=== PATIENT | female | born 1990 | race Caucasian/White ===

== ENCOUNTER 2021-06-29 19:09 | Emergency (ER) | payer OTHER ==
[~2021-06-29] VITALS: Ht 162.6 cm; Wt 59.0 kg
[2021-06-29] MEDS ORDERED: diphenhydrAMINE 50MG/ML VIAL (J1200) IV STA (20:23)
[2021-06-29] MEDS ORDERED: KETOROLAC 30 MG/ML 1ML VIAL IV ONE (20:25)
[2021-06-29] MEDS ORDERED: NS 1,000 ML IV ONE (20:25)
[2021-06-29] MEDS ORDERED: METOCLOPRAMIDE INJ 10MG/2ML VIAL (J2765 PER 1) IV ONE (20:25)
--- OUTSIDE RECORDS SUMMARY | 2021-06-29 20:58 | CCD ---
Author Author [facility] Organization [facility] Address Unknown Phone Unavailable Care Team Providers Care Special Agent [employer] Name Role Phone Ramon Edmondson PA-C Unavailable Unavailable Re-disclosure Warning The records that you are about to access may contain information from federally-assisted alcohol or drug abuse programs. If such information is present, then the following federally mandated warning applies: This information has been disclosed to you from records protected by federal confidentiality rules (42 CFR part 2). The federal rules prohibit you from making any further disclosure of this information unless further disclosure is expressly permitted by the written consent of the person to whom it pertains or as otherwise permitted by 42 CFR part 2. A general authorization for the release of medical or other information is NOT sufficient for this purpose. The Federal rules restrict any use of the information to criminally investigate or prosecute any alcohol or drug abuse patient.The records that you are about to access may contain highly sensitive health information, the redisclosure of which is protected by Article 27-F of the [facility] Public Health law. If you continue you may have access to information: Regarding HIV / AIDS; Provided by facilities licensed or operated by the [facility] Office of Mental Health; or Provided by the [facility] Office for People With Developmental Disabilities. If such information is present, then the following [facility] mandated warning applies: This information has been disclosed to you from confidential records which are protected by state law. State law prohibits you from making any further disclosure of this information without the specific written consent of the person to whom it pertains, or as otherwise permitted by law. Any unauthorized further disclosure in violation of state law may result in a fine or penitentiary sentence or both. A general authorization for the release of medical or other information is NOT sufficient authorization for further disc losure. Allergies and Adverse Reactions Type Description Substance Reaction Status Data Source(s ) Drug allergy No Known Allergies No Known Allergies [facility] Encounters Encounter Providers Location Date Indications Data Source(s ) Emergency Attender: Ramon FARAHCAdmitter: Ramon Edmondson PA-C 06/22/2020 10:55:36 AM EDT - 06/22/2020 01:02:00 PM EDT [facility] Patient discharged. Emergency 06/21/2020 01:28:00 PM EDT - 020 02:22:00 PM EDT [facility] Patient discharged. Medications No Information Insurance Providers Payer name Policy type / Coverage type Policy ID Covered libertarian ID Covered libertarian's relationship to chavez Policy Chavez Plan Information SELF 00 Self 00 COMM [id number] Self [id number] COMM UNKNOWN Self UNKNOWN SELF 00 Self 00 YAS [id number] SP [id number] Problems, Conditions, and Diagnoses No Information Surgeries/Procedures No Information Results ID Date Data Source [id number] 06/22/2020 01:23:00 PM EDT [facility] Name Value Range Interpretation Code Description Data Ellie rce(s) Supporting Document(s) UA Color Yellow NO [facility] UA Appear Clear NO [facility] UA pH 5.0-8.0 NO [facility] UA Spec Grav 1.015 1.005-1.030 [facility]A Glucose Negative NO [facility] UA Ketones Negative NO [facility] UA Urobilinogen 0.2-1.0 NO [facility] UA Bili Negative NO [facility] UA Blood Negative [facility] UA Protein Negative NO [facility] UA Nitrite Negative NO [facility] UA Leuk Est Negative NO [facility] ID Date Data Source [id number] 06/22/2020 01:06:00 PM EDT [facility] Patient Name: KATHERINE ZHAO BMRN: [id number] UltrasoundACCESSION EXAM DATE/TIME PROCEDURE ORDERING PROVIDER [id number] 06/22/2020 12:52 US OB < 14W Single Edmondson PA-C, Auth (Verified) EDT TA TV JonathanReason For Exam(US OB < 14W Single TA TV) Confirm ViabilityReportPROCEDURE: US Uterus First Trimester Less Than 14 Weeks With Real Time With Image DocumentationPROCEDURE: US Uterus With Real Time With Image Documentation TransvaginalCLINICAL HISTORY: Early OB SpottingSCRIPT INFORMATION: Confirm viabilityCOMPARISON: None.TECHNIQUE:Obstetrical ultrasound was performed with transabdominal and transvaginal approach with real time evaluation with image documentation.FINDINGS:UTERUS:The uterus measures 8.3 x 5.1 x 3.8 cm. The uterus contains a normal shape single gestational sac.The mean sac diameter is 0.98 cm. No pole is seen. A yolk sac is identified. The estimated gestational age is 5 weeks 5 days. The estimated date of confinement is 02/18/2020.RIGHT OVARY:The right ovary measures 4 x 2.7 x 2.8 cm.It has a normal echotexture.LEFT OVARY:The left ovary measures 2.7 x 2.8 x 2.4 cm.It has a normal echotexture.FLUID:There is no free pelvic fluid.IMPRESSION:There is an intrauterine gestational sac. There is no pole within the gestational sac. These findings may represent a very early viable although can represent a blighted ovum as well. Correlation with the patient's LMP, and serum beta hCG levels and serial followup ultrasonography is recommended. Note that an ectopic is not excluded.Thank you for allowing [facility] to participate in the evaluation of this patient. Final Dictated: Elton Manrique DO 06/22/20 13:01Signed: Elton Manrique DO 06/22/20 13:05Transcribed by: ESK Name Value Range Interpretation Code Description Data Ellie rce(s) Supporting Document(s) ID Date Data Source [id number] 06/22/2020 12:54:00 PM EDT [facility] Name Value Range Interpretation Code Description Data Ellie rce(s) Supporting Document(s) Beta hCG Quant 69863 mIU/mL <=5 [facility] <5.......Negative5-25.....Indeterminate repeat testing is suggested in 2 4 days ifclinically indicated.>25......PositiveApproximate gestational age bHcg range (mIU/ml) 0 1 week..............................5 50 1 2 weeks............................50 500 2 3 weeks...........................100 5,000 3 4 weeks...........................500 10,000 4 5 weeks.........................1,000 50,000 5 6 weeks........................10,000 100,000 6 8 weeks............. ...........15,000 200,000 2 3 months.......................10,000 100,000 2nd trimester.......................3,000 50,000 3rd trimester.......................1,000 50,000 ID Date Data Source [id number] 06/22/2020 12:39:00 PM EDT [facility] Name Value Range Interpretation Code Description Data Ellie rce(s) Supporting Document(s) ABSC Gel NO [facility] ID Date Data Source [id number] 06/22/2020 12:28:00 PM EDT [facility] Name Value Range Interpretation Code Description Data Ellie rce(s) Supporting Document(s) ABO/Rh UN [facility] ID Date Data Source [id number] 06/22/2020 12:25:00 PM EDT [facility] Added by Discern Rule [id number] Name Value Range Interpretation Code Description Data Ellie rce(s) Supporting Document(s) eGFR-AA >90 mL/min/1.73m2 >=60 [facility] The MDRD 4-Variable IDMS traceable Equat ion for non- individuals is used to calculate the estimated glomerular filtration rate (GFR). To estimate the GFR for Americans, multiply the provided GFR result by 1.16. The MDRD 4-Variable IDMS traceable Equation is validated in individuals 18 years of age or older. It is less accurate in patients with extremes of muscle mass, restriction of dietary protein, ingestion of creatine, extra-renal metabolism of creatinine, or treatment with medications that affect renal tubular creatinine secretion.GFR Categories in Chronic Kidney Disease (CKD)GFR Category: GFR (mL/min/1.73 m2): Interpretation: G1 90 or greater Normal or high*G2 60-89 Mild decrease*G3a 45-59 Mild to moderate [id number] 30-44 Moderate to severe decreaseG4 15-29 Severe decreaseG5 14 or less Kidney failure eGFR-MADELEINE >90 mL/min/1.73m2 >=60 [facility] The MDRD 4-Variable IDMS traceable Equat ion for non- individuals is used to calculate the estimated glomerular filtration rate (GFR). To estimate the GFR for Americans, multiply the provided GFR result by 1.16. The MDRD 4-Variable IDMS traceable Equation is validated in individuals 18 years of age or older. It is less accurate in patients with extremes of muscle mass, restriction of dietary protein, ingestion of creatine, extra-renal metabolism of creatinine, or treatment with medications that affect renal tubular creatinine secretion.GFR Categories in Chronic Kidney Disease (CKD)GFR Category: GFR (mL/min/1.73 m2): Interpretation: G1 90 or greater Normal or high*G2 60-89 Mild decrease*G3a 45-59 Mild to moderate [id number] 30-44 Moderate to severe decreaseG4 15-29 Severe decreaseG5 14 or less Kidney failure ID Date Data Source [id number] 06/22/2020 12:25:00 PM EDT [facility] Name Value Range Interpretation Code Description Data Ellie rce(s) Supporting Document(s) Glucose Lvl 100 mg/dL 65-99 [facility] BUN 10.0 mg/dL 7.0-21.0 [facility] Creatinine 0.70 mg/dL 0.40-1.00 [facility] BUN/Creat Ratio 14.3 ratio 7.0-29.0 [facility] Sodium Lvl 137 mmol/L 136-146 [facility] Potassium Lvl 4.1 mmol/L 3.5-5.1 [facility] Chloride 105 mmol/L 98-109 [facility] CO2 23 mmol/L 17-33 [facility] AGAP 9 5-15 [facility] Calcium Lvl 9.2 mg/dL 8.3-10.2 [facility] Total Protein 7.1 gm/dL 6.0-8.3 [facility] Albumin Lvl 4.1 gm/dL 3.7-5.3 [facility] Glob 3.0 gm/dL 2.0-4.5 [facility] A/G Ratio 1.4 ratio 1.0-2.2 [facility] Bili Total 0.7 mg/dL 0.4-1.1 [facility] Alk Phos 57 IU/L 30-125 NO [facility] AST 14 IU/L 10-35 NO [facility] ALT 16 IU/L 7-35 [facility] ID Date Data Source [id number] 06/22/2020 12:01:00 PM EDT [facility] Name Value Range Interpretation Code Description Data Ellie rce(s) Supporting Document(s) Neut Auto 74.8 % 40.0-70.0 [facility] Lymph Auto 17.6 % 22.0-44.0 LO [facility] [place] Auto 5.9 % 4.0-11.0 [facility] Eos Auto 1.0 % 0.0-8.0 [facility] Baso Auto 0.7 % 0.0-3.0 [facility] Neut Absolute 5.4 x10(3)/mcL 1.8-7.7 [facility] Lymph Absolute 1.3 x10(3)/mcL 1.0-4.8 [facility] [place] Absolute 0.4 x10(3)/mcL 0.2-1.2 [facility] Eos Absolute 0.1 x10(3)/mcL 0.0-0.9 [facility] Baso Absolute 0.1 x10(3)/mcL 0.0-0.3 [facility] ID Date Data Source [id number] 06/22/2020 12:01:00 PM EDT [facility] Name Value Range Interpretation Code Description Data Ellie rce(s) Supporting Document(s) WBC 7.2 x10(3)/mcL 4.5-11.0 NO [facility] RBC 4.35 x10(6)/mcL 4.00-5.20 [facility] Hgb 12.5 gm/dL 12.0-16.0 [facility] Hct 37.4 % 36.0-46.0 [facility] MCV 86 fL 80-100 [facility] MCH 28.8 pg 26.0-34.0 [facility] MCHC 33.5 gm/dL 31.0-37.0 [facility] RDW 12.7 % 11.5-14.5 [facility] Platelet 233 x10(3)/mcL 150-350 [facility] MPV 8.9 fL 7.4-10.4 [facility] ID Date Data Source [id number] 06/22/2020 01:03:00 PM EDT [facility] Patient: KATHERINE ZHAO Age: 29 years Sex: Female : 1990 Associated Diagnoses: Vaginal bleeding Author: Ramon Edmondson PA-C Basic Information Time seen: 06/22/2020, 11:23. Additional information: Chief Complaint from Nursing Triage Note : Chief Complaint 06/22/2020 11:09 EDT Chief Complaint was here yesterday left without being seen. Did a test that was pos. on Thursday and is having some spotting and wants to be check our. 06/21/2020 14:10 EDT Chief Complaint pt ambulatory to ER wearing mask c/o cramping, lighthead, and reports (+) test at home 3 days ago, unkonwn how many weeks gestation. no vaginal bleeding. . History of Present Illness The patient presents with vaginal bleeding. The onset was 1 days ago. The course/duration of symptoms is constant. Character of pain: none. Bleeding: mild. Status : 5, Para: 2 unknown. The exacerbating factor is none. The relieving factor is none. Risk factors consist of none. Prior episodes: none. Therapy today: none. Associated symptoms: nausea. Review of Systems Constitutional symptoms: No fever, Skin symptoms: No rash, Eye symptoms: Negative except as documented in HPI. ENMT symptoms: Negative except as documented in HPI. Respiratory symptoms: No shortness of breath, no cough. Cardiovascular symptoms: No chest pain, Gastrointestinal symptoms: Nausea, no abdominal pain, no vomiting, no diarrhea. Genitourinary symptoms: Vaginal bleeding, No dysuria, Musculoskeletal symptoms: No back pain, Neurologic symptoms: Dizziness, No headache, Psychiatric symptoms: Negative except as documented in HPI. Allergy/immunologic symptoms: Negative except as documented in HPI. Additional review of systems information: All systems reviewed and are negative. Health Status Allergies: Allergic Reactions (Selected)No Known Allergies. Medications: (Selected) Inpatient MedicationsOrderedNS Bolus: 1,000 mL, IV Bolus, OnceReglan: 10 mg, 2 mL, IV Push, Once. Past Medical/ Family/ Social History Medical history: No active or resolved past medical history items have been selected or recorded.. Surgical history: No active procedure history items have been selected or recorded.. Family history: No family history items have been selected or recorded.. Social history: Denies hx of ETOH and drug abuse but does smoke marijuana and cigarrettes socially. Problem list: No qualifying data available. Physical Examination Vital Signs Vital Signs 06/22/2020 11:09 EDT Temperature Temporal 97.4 DegF LOW Systolic Blood Pressure 99 mmHg Diastolic Blood Pressure 67 mmHg Heart Rate Monitored 75 bpm Respiratory Rate 18 br/min 06/21/2020 14:10 EDT Temperature Temporal 97.4 DegF LOW Systolic Blood Pressure 103 mmHg Diastolic Blood Pressure 76 mmHg Mean Arterial Pressure, Cuff 85 mmHg Heart Rate Monitored 74 bpm . Measurements 06/22/2020 11:09 EDT Clinical Weight 57.72 kg Body Mass Index Measured 21.72 kg/m2 Body Mass Index Measured 21.72 kg/m2 Height/Length Measured 163 cm 06/21/2020 14:10 EDT Clinical Weight 57.7 kg Body Mass Index Measured 21.72 kg/m2 Body Mass Index Measured 21.72 kg/m2 Height/Length Measured 163 cm . Basic Oxygen Information 06/22/2020 11:09 EDT Oxygen Therapy Room air SpO2 97 % 06/21/2020 14:10 EDT Oxygen Therapy Room air SpO2 97 % . General: Alert, general appearrance in no acute distress, anxious, Not ill- appearing, Skin: Warm, dry, pink, intact, no pallor, no rash. Head: Normocephalic, atraumatic. Neck: Supple. Eye: Normal conjunctiva. Cardiovascular: Regular rate and rhythm, No murmur, Normal peripheral perfusion, No edema. Respiratory: Lungs are clear to auscultation, respirations are non-labored, breath sounds are equal, Symmetrical chest wall expansion. Chest wall: No tenderness, No deformity. Back: No costovertebral angle tenderness, Gastrointestinal: Soft, Nontender, Non distended, Normal bowel sounds, No organomegaly, Guarding: Negative, Rebound: Negative. Neurological: Alert and oriented to person, place, time, and situation, No focal neurological deficit observed. Lymphatics: No lymphadenopathy. Psychi atric: Cooperative, appropriate mood and affect. Medical Decision Making Differential Diagnosis: Vaginal bleeding, pelvic pain, ectopic , threatened , spontaneous , incomplete , urinary tract infection, ovarian cyst, discomfort of . Orders Launch Order Profile (Selected) Inpatient OrdersOrderedNS Bolus: 1,000 mL, IV Bolus, OnceReglan: 10 mg, 2 mL, IV Push, OnceSaline Lock: Ordered (Dispatched)ABO/Rh: Antibody Screen Gel: Beta hCG Quantitative: CBC w/ Auto Diff: CMP: Urinalysis (UA) with Reflex Culture: Ordered (Exam Ordered)US OB < 14W Single TA TV: . Results review: Lab results : Lab View 06/22/2020 11:44 EDT WBC 7.2 x10(3)/mcL RBC 4.35 x10(6)/mcL Hgb 12.5 gm/dL Hct 37.4 % MCV 86 fL MCH 28.8 pg MCHC 33.5 gm/dL RDW 12.7 % Platelet 233 x10(3)/mcL MPV 8.9 fL Neut Auto 74.8 % HI Lymph Auto 17.6 % LOW [place] Auto 5.9 % Eos Auto 1.0 % Baso Auto 0.7 % Neut Absolute 5.4 x10(3)/mcL Lymph Absolute 1.3 x10(3)/mcL [place] Absolute 0.4 x10(3)/mcL Eos Absolute 0.1 x10(3)/mcL Baso Absolute 0.1 x10(3)/mcL Glucose Lvl 100 mg/dL HI BUN 10.0 mg/dL Creatinine 0.70 mg/dL eGFR-AA >90 mL/min/1.73m2 eGFR-MADELEINE >90 mL/min/1.73m2 BUN/Creat Ratio 14.3 ratio Sodium Lvl 137 mmol/L Potassium Lvl 4.1 mmol/L Chloride 105 mmol/L CO2 23 mmol/L AGAP 9 Calcium Lvl 9.2 mg/dL ALT 16 IU/L AST 14 IU/L Alk Phos 57 IU/L Total Protein 7.1 gm/dL Albumin Lvl 4.1 gm/dL Glob 3.0 gm/dL A/G Ratio 1.4 ratio Bili Total 0.7 mg/dL Beta hCG Quant 18,862 mIU/mL HI ABO/Rh B POS ABSC Gel Negative ABSC 06/22/2020 11:09 E DT LMP Date 05/23/2020 06/21/2020 14:10 EDT LMP Date 05/10/2020 . Notes: This is a 29 year old female with no significant medical hx who presents to the ED with vaginal bleeding described as spotting since last night. Pt reports having positive home preg test approx 4-5 days ago. Pt is A2 and reports the bleeding has resolved. She is currently moving up from [facility] to take care of her sick mother and does not have [employer] in the area. Reexamination/ Reevaluation Vital signs Basic Oxygen Information 06/22/2020 11:09 EDT Oxygen Therapy Room air SpO2 97 % 06/21/2020 14:10 EDT Oxygen Therapy Room air SpO2 97 % Impression and Plan Diagnosis Vaginal bleeding - [id number] N93.9, Discharge Plan Condition: Stable. Disposition: Left against medical advice, Pt wants to leave due to family emergency and will not wait for sono result. At time of AMA pt displays full functional capacity and denies SI/HI. Pt left despite knowing risks which include and loss of . Pt welcomed to return at any ti me. Patient was given the following educational materials: Adapting to : First Trimester, Understanding Uterine Bleeding. Follow up with: Anni Guzman In 3 days 06/25/2020; BRUCE Tesfaye In 3 days 06/25/2020; PCPONLY NONE In 3 days. Counseled: Patient, Regarding diagnosis, Regarding diagnostic results, Regarding treatment plan, Regarding prescription, Patient indicated understanding of instructions.06/22/2020 11:49:47 Comment by: Fidelia Real confirmed email, phone. no pcp. Fidelia Matute MElectronically signed by Ramon Edmondson PA-C 06/22/2020 13:03 EDT Name Value Range Interpretation Code Description Data Ellie rce(s) Supporting Document(s) Procedure Social History Code Duration Value Status Description Data Source(s ) Smoking 06/22/2020 12:14:57 PM EDT Never smoked tobacco (findi ng) completed Never smoked tobacco (finding) [facility] Vital Signs ID Date Data Source UNK Name Value Range Interpretation Code Description Data Source(s) Body temperature - Temporal artery 98.2 [degF] 97.9-100.6 De gF Normal (applies to non-numeric results) 98.2 [degF] [facility] Heart rate 89 bpm 60-100 bpm Normal (applies to non-numeric resul ts) 89 bpm [facility] Respiratory rate 16 br/min 14-20 br/min Normal (applies to non-n umeric results) 16 br/min [facility] Systolic blood pressure 112 mm[Hg] 90-130 mmHg Normal ( applies to non-numeric results) 112 mm[Hg] [facility] Diastolic blood pressure 71 mm[Hg] 60-90 mmHg Normal (applies to non-numeric results) 71 mm[Hg] [facility] Oxygen saturation in Blood Postductal by Pulse oximetry 98 % 94-100 % Normal (applies to non-numeric results) 98 % [facility] Oxygen therapy [Minimum Data Set] [facility] Body temperature - Temporal artery 97.4 [degF] 97.9-100.6 DegF [place] low normal 97.4 [degF] [facility] Heart rate 75 bpm 60-100 bpm Normal (applies to non-numeric resul ts) 75 bpm [facility] Respiratory rate 18 br/min 14-20 br/min Normal (applies to non-n umeric results) 18 br/min [facility] Systolic blood pressure 99 mm[Hg] 90-130 mmHg Normal ( applies to non-numeric results) 99 mm[Hg] [facility] Diastolic blood pressure 67 mm[Hg] 60-90 mmHg Normal (applies to non-numeric results) 67 mm[Hg] [facility] Oxygen therapy [Minimum Data Set] [facility] Oxygen saturation in Blood Postductal by Pulse oximetry 97 % 94-100 % Normal (applies to non-numeric results) 97 % [facility] Body mass index (BMI) [Ratio] 21.72 kg/m2 21.72 kg/m2 [facility] Body height 163 cm 163 cm [facility] Body weight Measured 57.72 kg 57.72 kg [facility] Body mass index (BMI) [Ratio] 21.72 kg/m2 21.72 kg/m2 [facility] Mean blood pressure by Noninvasive 85 mm[Hg] 8 5 mm[Hg] [facility] Body temperature - Temporal artery 97.4 [degF] 97.9-100.6 DegF [place] low normal 97.4 [degF] [facility] Heart rate 74 bpm 60-100 bpm Normal (applies to non-numeric resul ts) 74 bpm [facility] Systolic blood pressure 103 mm[Hg] 90-130 mmHg Normal ( applies to non-numeric results) 103 mm[Hg] [facility] Diastolic blood pressure 76 mm[Hg] 60-90 mmHg Normal (applies to non-numeric results) 76 mm[Hg] [facility] Oxygen therapy [Minimum Data Set] [facility] Oxygen saturation in Blood Postductal by Pulse oximetry 97 % 94-100 % Normal (applies to non-numeric results) 97 % [facility] Body mass index (BMI) [Ratio] 21.72 kg/m2 21.72 kg/m2 [facility] Body height 163 cm 163 cm [facility] Body weight Measured 57.7 kg 57.7 kg [facility] Body mass index (BMI) [Ratio] 21.72 kg/m2 21.72 kg/m2 [facility]
--- NOTE | 2021-06-29 21:14 | REPVR ---
PROCEDURE INFORMATION: Exam: CT Head Without Contrast Exam date and time: 06/29/2021 8:24 PM Age: 30 years old Clinical indication: Pain; Headache; Additional info: Severe headache TECHNIQUE: Imaging protocol: Computed tomography of the head without contrast. Radiation optimization: All CT scans at this facility use at least one of these dose optimization techniques: automated exposure control; mA and/or kV adjustment per patient size (includes targeted exams where dose is matched to clinical indication); or iterative reconstruction. COMPARISON: No relevant prior studies available. FINDINGS: Brain: There is no evidence of intracranial bleed. The kemp-white differentiation appears preserved. Cerebral ventricles: Normal appearing ventricles. Paranasal sinuses: Clear paranasal sinuses. Mastoid air cells: Clear mastoid air cells. Orbital cavity: Symmetric orbits. Bones/joints: No evidence of fracture. Soft tissues: Unremarkable. IMPRESSION: Normal appearing CT scan of the brain. Electronically signed by: Vj Vidal On 06/29/2021 21:13:49 PM
[2021-06-29 22:00] VITALS: BP 101/61
== END 2021-06-29 22:22 | disposition home or self-care (01) ==
LOC: M ED 19:09
DX: R51.9 Headache, unspecified (principal)
CPT/HCPCS: 70450; 84702; 96374; 96375; 99284; J1200; J1885; J2765

== ENCOUNTER 2021-12-11 15:14 | Emergency (ER) | payer OTHER ==
[~2021-12-11] VITALS: Ht 162.6 cm; Wt 59.1 kg
[2021-12-11] MEDS ORDERED: diphenhydrAMINE 50MG/ML VIAL (J1200) IV STA (15:47)
[2021-12-11] MEDS ORDERED: METOCLOPRAMIDE INJ 10MG/2ML VIAL (J2765 PER 1) IV ONE (15:50)
[2021-12-11] MEDS ORDERED: NS 1,000 ML IV ONE (15:50)
[2021-12-11 18:00] VITALS: BP 119/58
== END 2021-12-11 18:14 | disposition home or self-care (01) ==
LOC: M ED 15:14 → EDBD 15:14 → M ED 18:14
DX: G43.909 Migraine, unspecified, not intractable, without status migrainosus (principal); F17.200 Nicotine dependence, unspecified, uncomplicated
CPT/HCPCS: 99284; J1200; J2765

== ENCOUNTER 2022-07-22 21:18 | Emergency (ER) | payer OTHER, SELFPAY ==
[~2022-07-22] VITALS: Ht 157.5 cm; Wt 60.0 kg
[2022-07-22 22:59] LABS: BASO # 0.1 10^3/uL (0.0-0.2); BASO % 0.5 % (0.0-1.0); EOS # 0.1 10^3/uL (0.0-0.5); EOS % 0.9 % (0.0-3.0); HEMATOCRIT 38.7 % (36.0-47.0); HEMOGLOBIN 12.7 g/dl (12.0-15.5); LYMPH # 1.2 10^3/uL (1.5-5.0); LYMPH % 9.7 % (24.0-44.0); MEAN CORPUSCULAR HEMOGLOBIN 29.1 pg (27.0-33.0); MEAN CORPUSCULAR HGB CONC 32.8 g/dl (32.0-36.5); MEAN CORPUSCULAR VOLUME 88.6 fl (80.0-96.0); MONO # 0.6 10^3/uL (0.0-0.8); MONO % 4.6 % (2.0-8.0); NEUTROPHILS # 10.6 10^3/uL (1.5-8.5); NEUTROPHILS % 83.9 % (36.0-66.0); PLATELET COUNT, AUTOMATED 251 10^3/uL (150-450); RED BLOOD COUNT 4.37 10^6/uL (4.00-5.40); WHITE BLOOD COUNT 12.6 10^3/uL (4.0-10.0)
[2022-07-22] MEDS ORDERED: METOCLOPRAMIDE INJ 10MG/2ML VIAL (J2765 PER 1) IV ONE (23:20)
[2022-07-22] MEDS ORDERED: diphenhydrAMINE 50MG/ML VIAL IV ONE (23:20)
[2022-07-22] MEDS ORDERED: KETOROLAC 30 MG/ML 1ML VIAL IV ONE (23:20)
[2022-07-22] MEDS ORDERED: NS 1,000 ML IV ONE (23:20)
[2022-07-22 23:23] LABS: ALBUMIN 3.9 G/DL (3.2-5.2); ALT/SGPT 25 U/L (7.0-40); BILIRUBIN,DIRECT < 0.1 MG/DL (<0.4); BILIRUBIN,TOTAL 0.2 MG/DL (0.3-1.2); BLOOD UREA NITROGEN 13 MG/DL (9-23); CALCIUM LEVEL 9.7 MG/DL (8.5-10.1); CARBON DIOXIDE LEVEL 26 MMOL/L (20-31); CHLORIDE LEVEL 105 MMOL/L (98-107); GLOMERULAR FILTRATION RATE > 60.0 (>60); GLUCOSE, FASTING 112 MG/DL (60-100); LIPASE 35 U/L (12-53); MAGNESIUM LEVEL 2.1 MG/DL (1.8-2.4); POTASSIUM SERUM 4.4 MMOL/L (3.5-5.1); SODIUM LEVEL 141 MMOL/L (136-145); TOTAL PROTEIN 6.6 G/DL
[2022-07-23 00:33] LABS: HCG, SERUM QUALITATIVE NEGATIVE (NEGATIVE)
[2022-07-23] MEDS ORDERED: diphenhydrAMINE 50MG/ML VIAL IV ONE (01:10)
[2022-07-23] MEDS ORDERED: KETOROLAC 30 MG/ML 1ML VIAL IV ONE (01:10)
[2022-07-23] MEDS ORDERED: METOCLOPRAMIDE INJ 10MG/2ML VIAL (J2765 PER 1) IV ONE (01:10)
[2022-07-23 02:20] VITALS: BP 114/54
== END 2022-07-23 02:24 | disposition home or self-care (01) ==
LOC: EDUNIT# 21:18 → EDBD 21:18 → M ED 21:18
DX: G43.909 Migraine, unspecified, not intractable, without status migrainosus (principal); B34.8 Other viral infections of unspecified site
CPT/HCPCS: 80048; 80076; 83690; 83735; 84703; 85025; 87486; 87581; 87633; 87798; 96374; 96375; 96376; 99284; J1200; J1885; J2765

== ENCOUNTER 2022-08-27 15:28 | Emergency (ER) | payer MEDICAID, SELFPAY ==
[~2022-08-27] VITALS: Ht 160 cm; Wt 64.5 kg
[2022-08-27] MEDS ORDERED: KETOROLAC 60MG 2ML VIAL IM ONE (22:30)
[2022-08-27] MEDS ORDERED: methocarbamoL 750 MG TAB PO ONE (22:30)
[2022-08-27] MEDS ORDERED: METH-1165 PO (23:16)
[2022-08-27 23:40] VITALS: BP 120/69
== END 2022-08-27 23:41 | disposition home or self-care (01) ==
LOC: M ED 15:28
DX: S16.1XXA Strain of muscle, fascia and tendon at neck level, initial encounter (principal); X50.0XXA Overexertion from strenuous movement or load, initial encounter; Y92.009 Unspecified place in unspecified non-institutional (private) residence as the place of occurrence of the external cause
CPT/HCPCS: 72125; 96372; 99283; J1885

== ENCOUNTER 2022-09-04 14:19 | Emergency (ER) | payer MEDICAID, SELFPAY ==
[~2022-09-04] VITALS: Ht 162.6 cm; Wt 65.2 kg
[~2022-09-04 14:19] MED LIST: METH-1165 PO
[2022-09-04] MEDS ORDERED: GABAPENTIN 300 MG CAP PO ONE (17:50)
[2022-09-04] MEDS ORDERED: KETOROLAC 60MG 2ML VIAL IM ONE (17:50)
[2022-09-04] MEDS ORDERED: GABA-282 PO (19:05)
[2022-09-04] MEDS ORDERED: BACL10TA2 PO (19:05)
[2022-09-04 19:17] VITALS: BP 121/80
== END 2022-09-04 19:18 | disposition home or self-care (01) ==
LOC: M ED 14:19
DX: M54.2 Cervicalgia (principal); M25.512 Pain in left shoulder; R20.2 Paresthesia of skin
CPT/HCPCS: 71046; 96372; 99283; J1885

== ENCOUNTER 2023-03-28 10:10 | Emergency (ER) | payer SELFPAY ==
[~2023-03-28] VITALS: Ht 162.6 cm; Wt 66.1 kg
[~2023-03-28 10:10] MED LIST changes: +BACL10TA2 PO; +GABA-282 PO
[2023-03-28 11:13] LABS: BASO % 0.3 % (0.0-1.0); EOS # 0.1 10^3/uL (0.0-0.5); EOS % 0.4 % (0.0-3.0); HEMATOCRIT 40.9 % (36.0-47.0); HEMOGLOBIN 13.7 g/dl (12.0-15.5); LYMPH # 1.7 10^3/uL (1.5-5.0); LYMPH % 13.8 % (24.0-44.0); MEAN CORPUSCULAR HEMOGLOBIN 29.7 pg (27.0-33.0); MEAN CORPUSCULAR HGB CONC 33.5 g/dl (32.0-36.5); MEAN CORPUSCULAR VOLUME 88.5 fl (80.0-96.0); MONO # 0.8 10^3/uL (0.0-0.8); MONO % 6.8 % (2.0-8.0); NEUTROPHILS # 9.7 10^3/uL (1.5-8.5); NEUTROPHILS % 78.5 % (36.0-66.0); PLATELET COUNT, AUTOMATED 247 10^3/uL (150-450); RED BLOOD COUNT 4.62 10^6/uL (4.00-5.40); WHITE BLOOD COUNT 12.4 10^3/uL (4.0-10.0)
[2023-03-28 11:41] LABS: LIPASE 22 U/L (12-53)
[2023-03-28 11:43] LABS: ALBUMIN 4.2 G/DL (3.2-5.2); ALKALINE PHOSPHATASE 57 U/L (46-116); ALT/SGPT 10 U/L (7.0-40); AST/SGOT < 8 U/L (<34); BILIRUBIN,DIRECT 0.2 MG/DL (<0.4); BILIRUBIN,TOTAL 0.6 MG/DL (0.3-1.2); BLOOD UREA NITROGEN 8 MG/DL (9-23); CALCIUM LEVEL 9.9 MG/DL (8.5-10.1); CARBON DIOXIDE LEVEL 24 MMOL/L (20-31); CHLORIDE LEVEL 105 MMOL/L (98-107); CREATININE FOR GFR 0.55 MG/DL (0.55-1.30); GLOMERULAR FILTRATION RATE > 60.0 (>60); GLUCOSE, FASTING 79 MG/DL (60-100); POTASSIUM SERUM 4.5 MMOL/L (3.5-5.1); SODIUM LEVEL 137 MMOL/L (136-145); TOTAL PROTEIN 7.3 G/DL (5.7-8.2)
[2023-03-28 12:19] LABS: HCG, SERUM QUANTITATIVE 118130.4 MIU/ML (<4.2)
[2023-03-28 13:30] LABS: GC DNA AMPLIFICATION NEGATIVE (NEGATIVE)
[2023-03-28] MEDS ORDERED: METOCLOPRAMIDE INJ 10MG/2ML VIAL IV ONE (14:25)
[2023-03-28] MEDS ORDERED: NS 1,000 ML IV ONE (14:25)
[2023-03-28] MEDS ORDERED: REGL5TAB2 PO (15:53)
[2023-03-28 15:59] VITALS: BP 119/60; TEMP 98.5; O2SAT 100
[2023-03-28] MEDS ORDERED: MACR100C43 PO (16:26)
== END 2023-03-28 16:06 | disposition home or self-care (01) ==
LOC: M ED 10:10
DX: O23.41 Unspecified infection of urinary tract in pregnancy, first trimester (principal); O21.9 Vomiting of pregnancy, unspecified; Z3A.01 Less than 8 weeks gestation of pregnancy
CPT/HCPCS: 76801; 80048; 80076; 81001; 83690; 84702; 85025; 86850; 86900; 86901; 87088; 87186; 87661; 87810; 87850; 93005; 93976; 96374; 99284; J2765

== ENCOUNTER → 2023-06-22 | Outpatient (CLI) | payer OTHER, SELFPAY ==
[~2023-06-22] MED LIST changes: +MACR100C43 PO; +REGL5TAB2 PO
== END ==
LOC: M WHC 10:27
PROVIDERS: ATTEND Advanced Practice Midwife
DX: Z34.82 Encounter for supervision of other normal pregnancy, second trimester (principal)

== ENCOUNTER 2023-08-06 15:43 | Outpatient (CLI) | payer OTHER ==
[~2023-08-06] VITALS: Ht 162.6 cm; Wt 66.5 kg
[2023-08-06 15:57] VITALS: BP 116/59
[2023-08-06 17:15] LABS: BASO # 0.1 10^3/uL (0.0-0.2); BASO % 0.4 % (0.0-1.0); EOS # 0.1 10^3/uL (0.0-0.5); HEMATOCRIT 34.9 % (36.0-47.0); HEMOGLOBIN 11.7 g/dl (12.0-15.5); LYMPH # 1.6 10^3/uL (1.5-5.0); LYMPH % 13.1 % (24.0-44.0); MEAN CORPUSCULAR HEMOGLOBIN 30.5 pg (27.0-33.0); MEAN CORPUSCULAR HGB CONC 33.5 g/dl (32.0-36.5); MEAN CORPUSCULAR VOLUME 91.1 fl (80.0-96.0); MONO # 0.9 10^3/uL (0.0-0.8); MONO % 6.9 % (2.0-8.0); NEUTROPHILS # 9.5 10^3/uL (1.5-8.5); NEUTROPHILS % 77.9 % (36.0-66.0); PLATELET COUNT, AUTOMATED 258 10^3/uL (150-450); RED BLOOD COUNT 3.83 10^6/uL (4.00-5.40); WHITE BLOOD COUNT 12.3 10^3/uL (4.0-10.0)
== END 2023-08-06 18:47 | disposition home or self-care (01) ==
LOC: M LDO 15:43
PROVIDERS: ATTEND Obstetrics & Gynecology
DX: O26.892 Other specified pregnancy related conditions, second trimester (principal); R42 Dizziness and giddiness; Z3A.25 25 weeks gestation of pregnancy
CPT/HCPCS: 36415; 59025; 81001; 85025; 87486; 87581; 87633; 87798; G0463

== ENCOUNTER 2023-08-18 16:28 | Outpatient (CLI) | payer OTHER ==
[~2023-08-18] VITALS: Ht 162.6 cm; Wt 68.4 kg
[2023-08-18] MEDS ORDERED: TUMS500C PO (16:57)
[2023-08-18 16:59] VITALS: BP 106/55
[2023-08-18] MEDS ORDERED: HOME MED LIST COMPLETE! XX SCH (17:25)
[2023-08-18] MEDS ORDERED: ACETAMINOPHEN 500 MG TAB PO ONE (17:40)
[2023-08-18 18:08] LABS: AMPHETAMINES URINE REFLEX NEGATIVE (NEGATIVE); BARBITURATES URINE REFLEX NEGATIVE (NEGATIVE); BENZODIAZEPINES URINE REFLEX NEGATIVE (NEGATIVE); COCAINE METABOLITE URINE REFLE NEGATIVE (NEGATIVE); METHADONE URINE REFLEX NEGATIVE (NEGATIVE)
[2023-08-18 18:09] LABS: OPIATES URINE REFLEX NEGATIVE (NEGATIVE); PHENCYCLIDINE URINE REFLEX NEGATIVE (NEGATIVE)
[2023-08-18 18:16] LABS: CANNABINOIDS URINE REFLEX PENDING CONFIRMATION (NEGATIVE)
[2023-08-23 11:06] LABS: Cannabinoid Positive (.); Carboxy THC Conf, MS, UR >300 ng/mL (Cutoff=10)
== END 2023-08-18 19:48 | disposition home or self-care (01) ==
LOC: M LDO 16:28
PROVIDERS: ATTEND Obstetrics & Gynecology
DX: O21.8 Other vomiting complicating pregnancy (principal); Z3A.27 27 weeks gestation of pregnancy; O09.32 Supervision of pregnancy with insufficient antenatal care, second trimester
CPT/HCPCS: 59025; 80307; 81001; 87088; 87186; G0463; G0480

== ENCOUNTER → 2023-09-08 | Outpatient (CLI) | payer OTHER ==
[~2023-09-08] MED LIST changes: +ACET-907 PO; +PRENTAB9 PO; +TUMS500C PO
[2023-09-08 17:19] LABS: HEMATOCRIT 36.5 % (36.0-47.0); HEMOGLOBIN 11.9 g/dl (12.0-15.5); MEAN CORPUSCULAR HEMOGLOBIN 29.6 pg (27.0-33.0); MEAN CORPUSCULAR HGB CONC 32.6 g/dl (32.0-36.5); MEAN CORPUSCULAR VOLUME 90.8 fl (80.0-96.0); PLATELET COUNT, AUTOMATED 308 10^3/uL (150-450); RED BLOOD COUNT 4.02 10^6/uL (4.00-5.40); WHITE BLOOD COUNT 13.5 10^3/uL (4.0-10.0)
[2023-09-08 18:06] LABS: HIV 1&2 SCREEN NEGATIVE (NEGATIVE)
[2023-09-08 18:14] LABS: HEPATITIS C VIRUS ABY INDEX 0.05 INDEX (<0.8)
== END ==
LOC: M PLALAB 13:03
PROVIDERS: ATTEND Advanced Practice Midwife
DX: Z34.81 Encounter for supervision of other normal pregnancy, first trimester (principal)

== ENCOUNTER → 2023-09-08 | Outpatient (CLI) | payer OTHER | LOC: M WHC 13:19 | PROVIDERS: ATTEND Family Medicine | DX: Z36.2 Encounter for other antenatal screening follow-up (principal) ==

== ENCOUNTER 2023-10-09 18:12 | Outpatient (CLI) | payer OTHER ==
[2023-10-09 18:39] VITALS: BP 129/71
[2023-10-09 20:29] VITALS: BP 130/72
[2023-10-09] MEDS: BETAMETHASONE SOLUSPAN 6MG/ML 5ML VIAL IM ONE (21:50)
== END 2023-10-09 23:15 | disposition home or self-care (01) ==
LOC: M LDO 18:12
PROVIDERS: ATTEND Advanced Practice Midwife
DX: O26.893 Other specified pregnancy related conditions, third trimester (principal); N89.8 Other specified noninflammatory disorders of vagina; O47.1 False labor at or after 37 completed weeks of gestation; Z3A.34 34 weeks gestation of pregnancy
CPT/HCPCS: 59025; 87081; 96372; G0463; J0702

== ENCOUNTER 2023-11-07 07:50 | Inpatient (IN) | payer OTHER ==
[~2023-11-07] VITALS: Ht 162.6 cm; Wt 72.8 kg
[2023-11-07] VITALS (22 sets, daily range): BP systolic 102–194; BP diastolic 55–99; O2SAT 95
[2023-11-07] MEDS ORDERED: HOME MED LIST COMPLETE! XX SCH (08:05)
[2023-11-07] MEDS ORDERED: METHYLERGONOVINE MALEATE 0.2MG/ML 1ML VIAL IM PRN (08:35)
[2023-11-07] MEDS ORDERED: CARBOPROST TROMETHAMINE 250 MCG/ML AMP IM PRN (08:35)
[2023-11-07] MEDS ORDERED: TRANEXAMIC ACID INJection 1,000 MG in NS 100 ML IV PRN (08:35)
[2023-11-07] MEDS ORDERED: OXYTOCIN DRIP 30 UNITS in IV 1 EA IV PRN (08:35)
[2023-11-07 09:06] LABS: HEMATOCRIT 37.9 % (36.0-47.0); HEMOGLOBIN 12.5 g/dl (12.0-15.5); MEAN CORPUSCULAR VOLUME 84.8 fl (80.0-96.0); PLATELET COUNT, AUTOMATED 293 10^3/uL (150-450); RED BLOOD COUNT 4.47 10^6/uL (4.00-5.40); WHITE BLOOD COUNT 14.4 10^3/uL (4.0-10.0)
[2023-11-07] MEDS: LACTATED RINGER'S 1000 ML IV PRN (09:19)
[2023-11-07] MEDS: OXYTOCIN DRIP 30 UNITS in IV 1 EA IV SCH (10:32)
[2023-11-07] MEDS: LR 1,000 ML IV SCH (10:47)
[2023-11-07] MEDS ORDERED: ONDANSETRON 4MG 2ML VIAL IV PRN (11:10)
[2023-11-07] MEDS ORDERED: ePHEDrine SULFATE 25 MG/5 ML(5MG/ML) SYRINGE IVP PRN (11:10)
[2023-11-07] MEDS ORDERED: LR 500 ML IV PRN (11:10)
[2023-11-07] MEDS ORDERED: diphenhydrAMINE 50MG/ML VIAL IV PRN (11:10)
[2023-11-07] MEDS ORDERED: EPIDURAL/PCA KEYS XX PRN (11:10)
[2023-11-07] MEDS ORDERED: NALOXONE INJ 0.4MG/1ML VIAL IV PRN (11:10)
[2023-11-07] MEDS: FENTANYL/ROPIVACAINE/NACL BAG 100 ML EPIDURAL SCH (11:28)
[2023-11-07] MEDS ORDERED: RHOGAM 300MCG (1500IU) INJ IM SCH (15:20)
[2023-11-07] MEDS ORDERED: DOCUSATE SODIUM 100MG CAPSULE PO PRN (15:20)
[2023-11-07] MEDS ORDERED: METHYLERGONOVINE MALEATE 0.2 MG TAB PO PRN (15:20)
[2023-11-07] MEDS: PRENATAL VITAMINS CHEWABLE TABLET PO SCH (17:21)
[2023-11-07] MEDS: DIBUCAINE 1% OINTMENT 30GM TOP PRN (19:55)
[2023-11-07] MEDS: IBUPROFEN 600MG TAB PO PRN (19:55)
[2023-11-07] MEDS: ACETAMINOPHEN 500 MG TAB PO PRN (23:13)
[2023-11-08 05:50] VITALS: BP 98/56; O2SAT 66
[2023-11-08] MEDS ORDERED: COLA100C5 PO (16:06)
[2023-11-08] MEDS ORDERED: IBUP-1022 PO (16:06)
[2023-11-08] MEDS ORDERED: ACET-683 PO (16:06)
[2023-11-09] MEDS ORDERED: MEASLES,MUMPS,RUBELLA VACCINE INJ (MMR-II) SC.IMMUN ONE (09:00)
== END 2023-11-08 17:10 | disposition home or self-care (01) | DRG 560 ==
LOC: M LDO 07:50 → M LDI 08:29 → M OBS 16:48
PROVIDERS: ADMIT Obstetrics & Gynecology; ATTEND Obstetrics & Gynecology
PROC: 10E0XZZ Delivery of Products of Conception, External Approach (ICD-10-PCS; principal; 2023-11-07)
PROC: 10907ZC Drainage of Amniotic Fluid, Therapeutic from Products of Conception, Via Natural or Artificial Opening (ICD-10-PCS; 2023-11-07)
DX: O32.6XX0 Maternal care for compound presentation, not applicable or unspecified (principal); Z37.0 Single live birth; Z3A.38 38 weeks gestation of pregnancy